=== PATIENT | female | born 1955 | race Caucasian/White ===

== ENCOUNTER 2016-06-24 10:11 | Day surgery (SDC) | payer OTHER ==
--- NOTE | ~2016-06-24 | EGD ---
EGD REPORT [facility] [address] [address] NAME: YSABEL CHING : [birth year] STATUS : REG [facility]#: [id number] AGE: 60 ADM/REG DATE : 06/24/16 MR#: [id number] REPORT SERV DATE: 06/24/16 DICTATED BY: MONA CALI DATE: 06/24/16 REPORT STATUS : Draft TRANSCRIBED BY: [facility] DATE: 06/24/16 Endoscopy Center Patient Name: Ysabel Ching Date of : 1955 Attending MD: MONA CALI MD Procedure Date No Time: 06/24/2016 Procedure: Upper GI endoscopy Indications: Nausea with vomiting, Refractory retching and dry heaves after sleeve gastrectomy Referring MD: NABIL PATEL Medicines: Propofol per Anesthesia Complications: No immediate complications. Estimated blood loss: None. Procedure: Pre-Anesthesia Assessment: - After reviewing the risks and benefits, the patient was deemed in satisfactory condition to undergo the procedure. - Prior to the procedure, a History and Physical was performed, and patient medications and allergies were reviewed. The patient's tolerance of previous anesthesia was also reviewed. The risks and benefits of the procedure and the sedation options and risks were discussed with the patient. All questions were answered, and informed consent was obtained. Prior Anticoagulants: The patient has taken no previous anticoagulant or antiplatelet agents. ASA Grade Assessment: III - A patient with severe systemic disease. After reviewing the risks and benefits, the patient was deemed in satisfactory condition to undergo the procedure. After obtaining informed consent, the endoscope was passed under direct vision. Throughout the procedure, the patient's blood pressure, pulse, and oxygen saturations were monitored continuously. The GIF [id number] was introduced through the mouth, and advanced to the third part of duodenum. The upper GI endoscopy was accomplished without difficulty. The patient tolerated the procedure well. Findings: The examined esophagus was normal. There was evidence of a prior sleeve gastrectomy. There was a mild waist noted in the sleeve about 10 cm distal to the GE junction but it was widely patent without significant narrowing. A TTS dilator balloon was passed through the scope. Dilation with an 18-19-20 mm balloon (to a maximum balloon size of 20 mm) dilator was performed with an inflation to 18 mm for a minute and then 20 mm for a minute. Estimated blood loss: EGD REPORT [address] [address] NAME: YSABEL CHING : [birth year] STATUS : REG [facility] PAT#: [id number] AGE: 60 ADM/REG DATE : 06/24/16 MR#: [id number] REPORT SERV DATE: 06/24/16 DICTATED BY: MONA CALI DATE: 06/24/16 REPORT STATUS : Draft TRANSCRIBED BY: [employer] DATE: 06/24/16 none. The area was widely patent after dilation without any evidence of mucosal injury. Diffuse moderate inflammation characterized by erythema and granularity was found in the gastric antrum. The examined duodenum was normal. Impression: - Normal esophagus. - Minimal stenosis of sleeve gastrectomy S/P dilation to 20 mm (60 Fr). - Normal examined duodenum. - GERD. - Intractable dry heaves. Recommendation: - Discharge patient to home (ambulatory). - Resume clear liquid diet. - Begin Nexium suspension at 40 mg daily before meal as previously suggested. - Patient has a contact number available for emergencies. The signs and symptoms of potential delayed complications were discussed with the patient. Return to normal activities tomorrow. Written discharge instructions were provided to the patient. Procedure Code(s): --- Professional --- 81768, Esophagogastroduodenoscopy, flexible, transoral; with dilation of gastric/duodenal stricture(s) (eg, balloon, bougie) Diagnosis Code(s): --- Professional --- R11.2, Nausea with vomiting, unspecified CPT copyright 2013 [employer]. All rights reserved. The codes documented in this report are preliminary and upon executive staff assistant review may be revised to meet current compliance requirements. MONA CALI MD 06/24/2016 11:32 AM This report has been signed electronically. Number of Addenda: 0 Note Initiated On: 06/24/2016 10:54 AM Scope Withdrawal Time 0 hours 0 minutes 0 seconds [address] [place] [address]
[~2016-06-24 10:11] MED LIST: ACET500CAP PO; ASAB PO; ASMANEX200 INH; CRANBERRY300 MG PO; EZFE 200200 MG PO; FLURBIPROFEN100 MG PO; GLUCCHONDR PO; MEVACOR10 MG PO; MULTIPLE VIT PO; NEUR300 PO; PRILOSEC40 MG PO; PROAIR HFA INH; SUCR PO; SYN112 PO; VITAMIN D1000 UNI1 PO; ZESTORETIC PO
[2016-07-08] MEDS ORDERED: SYN125 PO (19:32)
[2016-07-08] MEDS ORDERED: PROTONIXIV IV (19:34)
[2016-07-08] MEDS ORDERED: HYDROMORPHONE 1 MG/ML PO (19:36)
[2016-07-08] MEDS ORDERED: HYCET 7.5 MG-3473 ML PO (19:36)
== END 2016-06-24 23:59 | disposition home or self-care (01) ==
LOC: DMU 10:11
PROVIDERS: Internal Medicine Gastroenterology
PROC: 0D748ZZ Dilation of Esophagogastric Junction, Via Natural or Artificial Opening Endoscopic (ICD-10-PCS; principal; 2016-06-24 11:00)
DX: K21.9 Gastro-esophageal reflux disease without esophagitis (principal); R11.2 Nausea with vomiting, unspecified; K91.89 Other postprocedural complications and disorders of digestive system
CPT/HCPCS: C1726

== ENCOUNTER 2016-06-28 12:02 | Inpatient (IN) | payer OTHER ==
--- NOTE | ~2016-06-28 | HP ---
History And Physical [facility] [id number] [place]. [address] NAME: BEN CHING : [birth year] STATUS : ADM IN PAT#: [id number] AGE: 60 ADM/REG DATE : 06/28/16 MR#: [id number] REPORT SERV DATE: 06/28/16 DICTATED BY: NABIL BUNCH DATE: 06/28/16 REPORT STATUS : Draft TRANSCRIBED BY: SUHAS DATE: 06/28/16 DATE OF ADMISSION: 06/28/2016 DICTATED BY: Armida Staples APRN, ALTON, JANE. CHIEF COMPLAINT: Intractable dry heaves with vomiting status post laparoscopic sleeve gastrectomy. HISTORY OF PRESENT ILLNESS: The patient is a pleasant 60-year-old white female, who is status post sleeve gastrectomy on 04/25/2016. She had a starting weight of 277.4 pounds with a BMI of 41.6. The patient did well initially and was able to tolerate clear and full liquids, however upon advancing to a more pureed and soft food diet, the patient started developing vomiting and dry heaving. This was managed conservatively at first through medications which she was able to receive some improvement; however, we decided to move forward with dilation of this sleeve gastrectomy. The patient was referred to Dr. Ander Trinidad and underwent a guided wire dilation on 06/13/2016. She initially showed some improvement through a 72-hour period and then her symptoms returned although at that point, they were not as severe. The patient was then referred back to Dr. Trinidad and was able to see his nurse practitioner, Lynda Roland on 06/24/2016, and underwent a second dilation at this time using a balloon dilator. The patient was followed up in the office 2 days later, did show improvement without any dry heaving or vomiting again for about a 72-hour period. The patient who contacted the office this morning, states that she once again is starting to have dry heaves and decreased intake. This is concerning currently, not only given that her symptoms have returned, but her last labs did show a decrease in renal function. She was referred to Nephrology but has not yet been contacted and so, the patient is admitted today for evaluation and further treatment. PAST MEDICAL HISTORY: The patient has a positive past medical history significant for asthma, dyslipidemia, hypertension, hypothyroidism, fibromyalgia, osteoporosis, reflux, and sleep apnea with a CPAP machine. PAST SURGICAL HISTORY: The patient has a previous surgical history including her bariatric surgery; 04/25/2016, laparoscopic sleeve gastrectomy with a starting weight of 277.4 pounds and a BMI of 41.6. In 2013, she had vein closure. In 2006, she had a right rotator cuff repair with hardware. In 1998, she had a partial thyroidectomy. In 1993, she had a left breast biopsy that was found to be benign; and in 1989, she had a section with a Pfannenstiel incision. FAMILY HISTORY: Family history is significant for father with kidney disease who at the age of 25. Mother with a history of breast cancer. A sister with malignant lymphoma and a sister with a breast cancer as well. SOCIAL HISTORY: The patient denies history of smoking but reports occasional social use, typically drinking wine 3-to-4 times a year. She denies alcohol use since surgery. She is employed and works as a preschool and lbd teacher. She is , with children. History And Physical [address] [address] NAME: BEN CHING : [birth year] STATUS : ADM IN [facility]#: [id number] AGE: 60 ADM/REG DATE : 06/28/16 MR#: [id number] REPORT SERV DATE: 06/28/16 DICTATED BY: NABIL BUNCH DATE: 06/28/16 REPORT STATUS : Draft TRANSCRIBED BY: SUHAS DATE: 06/28/16 MEDICATIONS: Although the patient is on numerous maintenance medications, she has currently been holding many of those medications at this time. She does continue to take her levothyroxine and her blood pressure medicines including lisinopril 20 mg with hydrochlorothiazide 12.5 mg as well as lovastatin 10 mg. She additionally has been taking Bentyl, Zofran 4 mg, and Ativan 0.5 mg every 8 hours as needed for her current symptoms. ALLERGIES: THE PATIENT DENIES DRUG ALLERGIES. REVIEW OF SYSTEMS: The patient denies chest pain or shortness of breath when walking. No palpitations or leg pain with exercise. She reports history of sleep apnea with CPAP reviews, but denies cough, wheezing, shortness of breath, coughing up blood, or ongoing lung disease. She does have a positive history for asthma. She reports intermittent GERD, typically treated by omeprazole, this has decreased since surgery, and she has not been currently taking her PPI. She denies diarrhea. She reports bone and joint pain but denies muscle aches, muscle weakness, or back pain. She reports history of anemia with successful treatment in the past. No fever or significant weight gain. She has reported weight loss with surgery. No history of cancers or problems with anesthesia in the past. No eye complaints, eye irritation. She does wear glasses. She reports no difficulty hearing or ear pain. No sore throat or abnormalities, teeth problems, or hoarseness. No painful urination and she is currently voiding 3-to-4 times a day. No history of kidney disease in the past. She denies problems with the skin. No abnormal moles, jaundice, rashes, nonhealing wounds or sores. No loss of consciousness, weakness, numbness, seizures, dizziness, or headaches and no history of depression, sleep disturbances, anxiety, or alcohol abuse. PHYSICAL EXAMINATION: GENERAL: The patient is a 60-year-old white female. CONSTITUTIONAL/GENERAL APPEARANCE: Well-nourished morbidly obese. Level of distress, no cute distress. Ambulation, is ambulating normally. HEAD: Pupils are equal, round, and reactive to light. EAR, NOSE, AND THROAT: ENT is within normal limits. NECK: Supple. Trachea midline. No masses. CARDIOVASCULAR: Heart auscultation, regular rate and rhythm. LUNGS: Respiratory effort, no dyspnea. Auscultation, no wheezing, rales, crackles, or rhonchi. Breath sounds are normal and clear to auscultation. ABDOMEN: Inspection and palpation, no tenderness, guarding, masses, or rebound tenderness. ABDOMEN: Soft and nondistended. Bowel sounds are normal. Lap sites have healed. PSYCHIATRIC: Insight, good judgment and insight. MENTAL STATUS: Normal mood. Flat affect but she is active and alert. She is oriented to time, place, and person. LABS: The patient did undergo labs through Dr. Trinidad's office on 06/21/2016, we are awaiting current hospital labs. Her labs did show that she had a GFR of 19 with a creatinine of 2.61, this is what led to Nephrology consult, and we will await a CBC, renal panel, and magnesium for further evaluation while inpatient. ASSESSMENT AND PLAN: This is a 60-year-old white female who has recently undergone laparoscopic sleeve gastrectomy, developed dysphagia with intractable dry heaves and productive vomiting in week 3-to-4 postop. She has been treated through medical management History And Physical [address] [address] NAME: BEN CHING : [birth year] STATUS : ADM IN PAT#: [id number] AGE: 60 ADM/REG DATE : 06/28/16 MR#: [id number] REPORT SERV DATE: 06/28/16 DICTATED BY: NABIL BUNCH DATE: 06/28/16 REPORT STATUS : Draft TRANSCRIBED BY: SUHAS DATE: 06/28/16 as well as dilation with both guidewire and repeated balloon dilation with initial improvement. Given this improvement, there is the belief that there is a mechanical component to her vomiting although there is likely a psychological component as well. Given her repeat of symptoms currently, the patient is being admitted for management and evaluation of both her current renal status by Nephrology and we have also consulted GI Dr. Ander Trinidad to proceed with placement of a stent in order to address the mechanical component of this patient's current symptoms. The patient is going to undergo treatment with medications including IV Zofran, Protonix, Ativan, and pain medications as needed. Stent has been ordered. Placement is expected on Friday afternoon and the patient is receiving IV fluid bolus of normal saline at 500 mL and then that will be converted over to D5 half-normal saline at a rate of 125 mL. RICHARD Nabil Grant M.D. / [id number] CC: Tyson Benitez
--- NOTE | ~2016-06-28 | DS ---
Discharge Summary [facility] [address] [place]. [address] NAME: BEN CHING : 59 STATUS : DIS IN PAT#: [id number] AGE: 60 ADM/REG DATE : 06/28/16 MR#: [id number] REPORT SERV DATE: 07/19/16 DICTATED BY: NABIL BUNCH DATE: 07/18/16 REPORT STATUS : Draft TRANSCRIBED BY: SUHAS DATE: 07/18/16 ADMISSION DATE: 06/28/2016 DISCHARGE DATE: 07/04/2016 This patient has been struggling with dry heaves and dysphagia after sleeve gastrectomy. She responded well to a balloon dilatation, but then the symptoms recurred. So at this point, she has been admitted to manage her dry heaves with IV fluids, IV medications, and then we consulted GI, Dr. Trinidad to place an endoscopic stent to alleviate some of the distress. She does not have a stricture. She is just very sensitive to a narrow sleeve. So we are going to try to stretch it that way, and because she responded well with balloon dilatation, then we are going to try to do a more permanent distention with stent. So we ordered the stent. The patient was admitted on a Friday with contemporizing in order the stent to be placed on Friday. Stent was placed on 07/01/2016, and then the next day, she was doing well, but she could not tolerate p.o. liquid, so we decided to put a PICC line TPN and then do a home health management with TPN at home. The plan is to leave the stent for 1 or 2 weeks and then remove the stent and then see how she does. Condition on discharge, stable and improved. She was sent with home health with TPN, IV Protonix, and follow up in our office in 1 week. So the final diagnosis is dysphagia and dry heaves post a laparoscopic sleeve gastrectomy. RICHARD Nabil Grant M.D. / [id number]
--- NOTE | ~2016-06-28 | CN ---
Consultation Report [facility] [address] [place]. [address] NAME: BEN CHING : 59 STATUS : DIS IN PAT#: [id number] AGE: 60 ADM/REG DATE : 06/28/16 MR#: [id number] REPORT SERV DATE: 07/11/16 DICTATED BY: ANA MAYBERRY DATE: 06/28/16 REPORT STATUS : Draft TRANSCRIBED BY: MODL DATE: 06/28/16 CONSULTATION DATE OF CONSULTATION: 06/28/2016 REASON FOR CONSULTATION: Acute kidney injury. ASSESSMENT: Acute kidney injury. The patient's baseline creatinine was 0.81 on 03/2013, 1.05 on 04/17/2016, 2.61 on 06/21/2016 this year, and now is 1.73 on admission. I suspect she has volume depletion in the setting of recurrent dry heaving post gastric sleeve procedure done in April of this year with concomitant use of her lisinopril/HCTZ that likely aggravated a decline in her GFR. It should be totally reversible and I suspect it is mainly the above factors. PLAN: 1. Continue the IV fluids that you started. 2. Check her urinalysis. 3. Check her renal ultrasound for completion and the diet is to be followed as per the GI MDs. HISTORY: History is obtained from the patient and the . She is a very pleasant 60- year-old female, who underwent a gastric sleeve procedure that was done on 04/25/2016. She had a sleeve gastrectomy and posterior crural repair of moderate sized hiatal hernia that was done by Dr. Albarran on 04/25/2016. Unfortunately, she has subsequently developed dry heaving that has been persistent several weeks after. Dr. Trinidad has performed two dilatations with relief over a period of three days and then recurrence of symptoms. She is on lisinopril/HCTZ for hypertension which she has continued to take and now is admitted after continued heaving and significant dehydration and inability to take anything in orally. She has lost about 40 pounds in her sleeve procedure, but she has also developed acute kidney injury related to profound dehydration and the medication use, assume. She denies any difficulty voiding. No use of antiinflammatories. No hematuria. No increasing lower limb edema. Denies prior history of acute kidney injury, and no family history of kidney stones or passage of kidney stones. PAST MEDICAL HISTORY: Includes: 1. Breast reduction and partial mastectomies back in 2013 because of strong family history of breast cancer. 2. Hypertension. 3. Gastric sleeve procedure. 4. History of osteoarthritis in both hip joints. SOCIAL HISTORY: Does not smoke cigarettes. No alcohol or medication street drug usage. HOME MEDICATIONS: Described and include lisinopril/HCTZ. Consultation Report [address] [place]. [address] NAME: BEN CHING : 59 STATUS : DIS IN PAT#: [id number] AGE: 60 ADM/REG DATE : 06/28/16 MR#: [id number] REPORT SERV DATE: 07/11/16 DICTATED BY: ANA MAYBERRY DATE: 06/28/16 REPORT STATUS : Draft TRANSCRIBED BY: SUHAS DATE: 06/28/16 REVIEW OF SYSTEMS: As per the HPI. FAMILY HISTORY: Parents, no history of chronic kidney disease or history of renal failure. Her father two months before she was born, apparently had some form of kidney disease, and her mother when the patient was 9 from breast cancer. PHYSICAL EXAMINATION: GENERAL: She is lying prone. VITAL SIGNS: Show her blood pressure is 111/65, heart rate is in the 90s. She is afebrile. HEENT: Her pupils are reactive to light. She is not pale or jaundiced. Her oral mucosa is dry. There is no pharyngitis. NECK: Supple. No thyromegaly. Trachea central. Air entry is equal bilaterally. CHEST: Clear to auscultation. She has had breast surgery as indicated. ABDOMEN: Mildly distended. There is no hepatosplenomegaly, tenderness, guarding, or rebound. She has no peripheral edema. Slight loss of skin turgor is noted. Peripheral pulses are present, dorsalis pedis, posterior tibial. She is obese. NEURO: She is awake, alert, oriented to time, place, and person. Affect is depressed. Cranial nerves are intact. No gross neurological deficits described. LAB WORK: Sodium 139, potassium 4.3, chloride 103, CO2 of 24, BUN 32, creatinine 1.73, glucose 119, alkaline phosphatase 131, ALT is 69. TSH 0.35. Hemoglobin 9.9, hematocrit 31.3, white count 9.9, platelet count 266,000. Urinalysis is pending. MG/MODL Ana Mayberry M.D. / [id number] CC: Tyson Benitez Stephen S
--- NOTE | ~2016-06-28 | CN ---
Consultation Report [facility] [address] [place]. [address] NAME: BEN HCING : 59 STATUS : ADM IN PAT#: [id number] AGE: 60 ADM/REG DATE : 06/28/16 MR#: [id number] REPORT SERV DATE: 06/30/16 DICTATED BY: RICHARD ROSALES DATE: 06/30/16 REPORT STATUS : Draft TRANSCRIBED BY: MODL DATE: 06/30/16 CONSULTATION DATE OF CONSULTATION: HISTORY OF PRESENT ILLNESS: This very pleasant 60-year-old lady had a post sleeve gastrectomy on 04/25/2016. After that, she began having problems with tolerating liquids. She could tolerate clear liquids, but advanced to a more pureed diet, had problems with vomiting and dry heaving. She did not really had vomit up fluid, but more dry heaving and gagging. She underwent a wire-guided dilation of 36-Hungarian on 06/13/[address] Trinidad. She improved for 48 hours and symptoms recurred. She underwent a second dilatation on 06/24/2016 with a balloon dilator. She improved again for 24 to 72 hours and on the day of admission, had dry heaves and poor intake. She really denies any abdominal pain. PAST MEDICAL HISTORY: Asthma, hyperlipidemia, hypothyroid, osteoporosis. MEDICATIONS: Thyroid, lisinopril, lovastatin. PHYSICAL EXAMINATION: GENERAL: Does not look in acute distress. VITAL SIGNS: Normal. TRACHEA: Midline. CHEST: Clear. CARDIAC: Normal. ABDOMEN: Soft, nontender. LABORATORY DATA: Her hemoglobin is 9.9. BUN of 1.73, now down to 1.37 with hydration. IMPRESSION: Decreased intake and dry heaving after sleeve gastrectomy. Transient responsive dilatation. Question whether she has stenosis in the gastric sleeve. Apparently, the plan is for Dr. Trinidad to perform stent placement. PLAN: 1. Keep up IV hydration. 2. We will add Compazine for nausea to the Zofran. 3. Dr. Trinidad to return on Friday for procedure. MG/MODL Richard Rosales M.D. Consultation Report [facility] [address] [place]. [address] NAME: BEN CHING : 59 STATUS : ADM IN PAT#: [id number] AGE: 60 ADM/REG DATE : 06/28/16 MR#: [id number] REPORT SERV DATE: 06/30/16 DICTATED BY: RICHARD ROSALES DATE: 06/30/16 REPORT STATUS : Draft TRANSCRIBED BY: MODL DATE: 06/30/16 / [id number] CC: Tyson Benitez
--- NOTE | ~2016-06-28 | OP ---
Record Of Operation [facility] [address] [place]. [address] NAME: BEN CHING : 59 STATUS : ADM IN PAT#: [id number] AGE: 60 ADM/REG DATE : 06/28/16 MR#: [id number] REPORT SERV DATE: 07/01/16 DICTATED BY: ANDER TRINIDAD DATE: 07/01/16 REPORT STATUS : Draft TRANSCRIBED BY: SUHAS DATE: 07/01/16 DATE OF PROCEDURE: PROCEDURE: EGD with fluoroscopic placement of [employer] fully covered stent through distal esophagus and sleeve. INDICATION: Mild stenosis of gastric sleeve with intractable nausea, vomiting, gagging, and dry heaving. MEDICATIONS: Propofol. PIZZA BAKER: Ander Trinidad M.D. COMPLICATIONS: None. HISTORY: This woman is 60 years old and now several weeks, status post placement of a gastric sleeve. She has been unable to feed and has lost a great deal of weight. She has had Savary dilation and a week ago, balloon dilation to 20 mm of an area of mild stenosis in the gastric sleeve. Appeared to be fully patent after the dilation. After each dilation, she improved for several days, but then began to gag and retch again. After discussion with the patient, her , Dr. Albarran, Bariatric Surgery recommended placement of a fully covered stent for a couple of weeks to allow the sleeve to fully open and accommodate. I agreed to do this and discuss this with the family including the risks of bleeding, medication reaction, perforation, and they elected to proceed. FINDINGS: Endoscopic examination was performed of the esophagus, gastric sleeve, and duodenum. There were no major differences from the prior examination. There was an area of mild puckering just distal to the GE junction in the gastric sleeve, but it really did appear to be fully patent. This area of "mild stenosis" was measured 44 cm from the incisors. The GE junction was measured at 40 cm from the incisors and the pylorus was measured 59 cm from the incisors. Radiopaque markers were placed on the patient at 40 cm to identify this area. I then placed an Endoclip at 52 cm from the incisors. This was the goal for the distal placement of the stent as we wanted to leave about 3 cm of the stent in the distal esophagus. This also gave us margin of 7 cm proximal to the pylorus. At this point, a guidewire was placed through the endoscope and the scope was removed over the guidewire. Using the radiopaque Endoclip and the external marker, we then put in this stent apparatus over the wire without too much difficulty. Unfortunately, she did gag a lot during the procedure which made it difficult, but we then deployed the stent in the desired position with the proximal margin 37 cm from the incisors or about 3 cm proximal to GE junction. The distal margin of the stent was about 52 cm from the incisors or 7 cm proximal to the pylorus. The stent was then traversed with the endoscope and it appeared to be in good position and fully deployed. There was no bleeding. The scope was removed and the patient sent to recovery. IMPRESSION: Mild gastric sleeve stenosis, status post placement of a stent. Record Of Operation [address] [place]. [address] NAME: BEN CHING : 59 STATUS : ADM IN [facility]#: [id number] AGE: 60 ADM/REG DATE : 06/28/16 MR#: [id number] REPORT SERV DATE: 07/01/16 DICTATED BY: ANDER TRINIDAD DATE: 07/01/16 REPORT STATUS : Draft TRANSCRIBED BY: SUHAS DATE: 07/01/16 RECOMMENDATIONS: We will start clear liquids and then defer to Bariatric Surgery. MARINA/SUHAS Ander Trinidad M.D. / [id number] CC: Tyson Benitez STEPHEN S
[2016-06-28 13:56] LABS: BASOPHILS 0.2 %; BASOPHILS ABSOLUTE 0.02 10/3/uL (0.0-0.16); EOSINOPHILS 0.3 %; EOSINOPHILS ABSOLUTE 0.03 10/3/uL (0.0-0.53); HEMATOCRIT 31.3 % (36.0-48.0); HEMOGLOBIN 9.9 g/dL (12.0-16.0); IMMATURE GRANULOCYTES 0.1 %; IMMATURE GRANULOCYTES ABSOLUTE 0.01 10/3/uL (0.0-0.11); LYMPHOCYTES 14.3 %; LYMPHOCYTES ABSOLUTE 1.41 10/3/uL (0.67-4.30); MEAN CORPUS HGB CONC 31.6 g/dL (32.0-36.0); MEAN CORPUSCULAR HEMOGLOB 28.6 pg (26.0-34.0); MEAN CORPUSCULAR VOLUME 90.5 fL (80-100); MEAN PLATELET VOLUME 10.4 fL (9.2-13.0); MONOCYTES 4.5 %; MONOCYTES ABSOLUTE 0.44 10/3/uL (0.21-1.20); NEUTROPHILS 80.6 %; NEUTROPHILS ABSOLUTE 7.96 10/3/uL (2.02-8.40); PLATELET COUNT 266 10/3/uL (150-400); RBC DISTRIBUTION WIDTH 14.6 % (12.0-16.0); RED CELL COUNT 3.46 10/6/uL (4.0-5.6); WHITE BLOOD CELLS 9.9 10/3/uL (4.5-10.5)
[2016-06-28 14:00] LABS: ALBUMIN 3.5 G/DL (3.5-5.0); CALCIUM, SERUM 9.3 MG/DL (8.5-10.4); CHLORIDE, SERUM 103 MMOL/L (96-112); CO2 (CARBON DIOXIDE) 24 MMOL/L (24-34); PHOSPHORUS, SERUM 2.7 MG/DL (2.5-4.5); POTASSIUM, SERUM 4.3 MMOL/L (3.5-5.3); SODIUM, SERUM 139 MMOL/L (135-148)
[2016-06-28 14:01] LABS: BUN (BLOOD UREA NITROGEN) 32 MG/DL (6-23); CREATININE 1.73 MG/DL (0.55-1.02); GFR AFRICAN AMERICAN 37 ML/MIN (>=60); GFR NON AFRICAN AMERICAN 32 ML/MIN (>=60); GLUCOSE, SERUM 119 MG/DL (60-99); MANUAL DIFF NO %
[2016-06-28] MEDS ORDERED: LEVOTHYROXIN125 MCG PO (19:38)
[2016-06-28] MEDS ORDERED: ATV.5 PO (19:47)
[2016-06-28 20:36] LABS: ASCORBIC ACID (UR NOT ORDER) 20 (NEG); BILIRUBIN, URINE NEGATIVE (NEG); KETONE, URINE NEGATIVE (NEG); LEUKOCYTE ESTERASE(NOT OR NEG (NEG); WBC (NOT ORDERED) (RFLEX) 1 (0-5)
[2016-06-29 04:33] LABS: BASOPHILS 0.1 %; BASOPHILS ABSOLUTE 0.01 10/3/uL (0.0-0.16); EOSINOPHILS 1.1 %; EOSINOPHILS ABSOLUTE 0.08 10/3/uL (0.0-0.53); HEMATOCRIT 29.6 % (36.0-48.0); HEMOGLOBIN 9.3 g/dL (12.0-16.0); IMMATURE GRANULOCYTES 0.1 %; IMMATURE GRANULOCYTES ABSOLUTE 0.01 10/3/uL (0.0-0.11); INTERNATIONAL NORMAL RATI 1.1 UNITS (-); LYMPHOCYTES 22.5 %; MANUAL DIFF NO %; MEAN CORPUS HGB CONC 31.4 g/dL (32.0-36.0); MEAN CORPUSCULAR HEMOGLOB 28.7 pg (26.0-34.0); MEAN CORPUSCULAR VOLUME 91.4 fL (80-100); MEAN PLATELET VOLUME 10.6 fL (9.2-13.0); MONOCYTES 5.8 %; MONOCYTES ABSOLUTE 0.41 10/3/uL (0.21-1.20); NEUTROPHILS 70.4 %; NEUTROPHILS ABSOLUTE 4.99 10/3/uL (2.02-8.40); PLATELET COUNT 240 10/3/uL (150-400); PROTIME (NOT ORD) 14.5 SEC (12.0-14.5); RBC DISTRIBUTION WIDTH 14.5 % (12.0-16.0); RED CELL COUNT 3.24 10/6/uL (4.0-5.6); WHITE BLOOD CELLS 7.1 10/3/uL (4.5-10.5)
[2016-06-29 04:47] LABS: A/G RATIO 0.7 (0.7-1.9); ALBUMIN 2.9 G/DL (3.5-5.0); CHLORIDE, SERUM 103 MMOL/L (96-112); CO2 (CARBON DIOXIDE) 26 MMOL/L (24-34); CREATININE 1.57 MG/DL (0.55-1.02); GFR AFRICAN AMERICAN 42 ML/MIN (>=60); GFR NON AFRICAN AMERICAN 36 ML/MIN (>=60); GLOBULIN 3.9 G/DL (2.5-4.1); GLUCOSE, SERUM 122 MG/DL (60-99); PHOSPHORUS, SERUM 2.9 MG/DL (2.5-4.5); SGPT(ALT) 44 U/L (5-65); SODIUM, SERUM 136 MMOL/L (135-148); TOTAL BILIRUBIN 0.5 MG/DL (0-1.2); TOTAL PROTEIN 6.8 G/DL (6.0-8.5)
[2016-06-29 04:51] LABS: ALKALINE PHOSPHATASE 90 U/L (45-117); BUN (BLOOD UREA NITROGEN) 22 MG/DL (6-23); DIRECT BILIRUBIN < 0.1 MG/DL (0.0-0.4); INDIRECT BILIRUBIN(NOT ORDER) 0.4 MG/DL (0.1-0.9); POTASSIUM, SERUM 4.7 MMOL/L (3.5-5.3); SGOT(AST) 28 U/L (5-40)
[2016-06-30 04:09] LABS: BASOPHILS 0.1 %; BASOPHILS ABSOLUTE 0.01 10/3/uL (0.0-0.16); EOSINOPHILS 1.4 %; HEMATOCRIT 28.7 % (36.0-48.0); HEMOGLOBIN 9.1 g/dL (12.0-16.0); IMMATURE GRANULOCYTES 0.1 %; IMMATURE GRANULOCYTES ABSOLUTE 0.01 10/3/uL (0.0-0.11); LYMPHOCYTES 22.6 %; LYMPHOCYTES ABSOLUTE 1.61 10/3/uL (0.67-4.30); MANUAL DIFF NO %; MEAN CORPUS HGB CONC 31.7 g/dL (32.0-36.0); MEAN CORPUSCULAR VOLUME 91.4 fL (80-100); MEAN PLATELET VOLUME 10.2 fL (9.2-13.0); MONOCYTES 6.5 %; MONOCYTES ABSOLUTE 0.46 10/3/uL (0.21-1.20); NEUTROPHILS 69.3 %; NEUTROPHILS ABSOLUTE 4.92 10/3/uL (2.02-8.40); PLATELET COUNT 214 10/3/uL (150-400); RBC DISTRIBUTION WIDTH 14.3 % (12.0-16.0); RED CELL COUNT 3.14 10/6/uL (4.0-5.6); WHITE BLOOD CELLS 7.1 10/3/uL (4.5-10.5)
[2016-06-30 04:29] LABS: ALBUMIN 3.1 G/DL (3.5-5.0); BUN (BLOOD UREA NITROGEN) 9 MG/DL (6-23); CHLORIDE, SERUM 104 MMOL/L (96-112); CO2 (CARBON DIOXIDE) 27 MMOL/L (24-34); CREATININE 1.37 MG/DL (0.55-1.02); GFR AFRICAN AMERICAN 49 ML/MIN (>=60); GFR NON AFRICAN AMERICAN 42 ML/MIN (>=60); GLUCOSE, SERUM 116 MG/DL (60-99); POTASSIUM, SERUM 4.2 MMOL/L (3.5-5.3); SODIUM, SERUM 137 MMOL/L (135-148)
[2016-07-01 04:56] LABS: BASOPHILS 0.3 %; BASOPHILS ABSOLUTE 0.02 10/3/uL (0.0-0.16); EOSINOPHILS 1.5 %; EOSINOPHILS ABSOLUTE 0.11 10/3/uL (0.0-0.53); HEMATOCRIT 27.7 % (36.0-48.0); HEMOGLOBIN 8.8 g/dL (12.0-16.0); IMMATURE GRANULOCYTES 0.4 %; IMMATURE GRANULOCYTES ABSOLUTE 0.03 10/3/uL (0.0-0.11); LYMPHOCYTES 20.4 %; MANUAL DIFF NO %; MEAN CORPUS HGB CONC 31.8 g/dL (32.0-36.0); MEAN CORPUSCULAR HEMOGLOB 28.3 pg (26.0-34.0); MEAN CORPUSCULAR VOLUME 89.1 fL (80-100); MEAN PLATELET VOLUME 10.5 fL (9.2-13.0); MONOCYTES ABSOLUTE 0.37 10/3/uL (0.21-1.20); NEUTROPHILS 72.4 %; NEUTROPHILS ABSOLUTE 5.32 10/3/uL (2.02-8.40); PLATELET COUNT 209 10/3/uL (150-400); RBC DISTRIBUTION WIDTH 14.4 % (12.0-16.0); RED CELL COUNT 3.11 10/6/uL (4.0-5.6); WHITE BLOOD CELLS 7.4 10/3/uL (4.5-10.5)
[2016-07-01 05:09] LABS: ALBUMIN 2.8 G/DL (3.5-5.0); BUN (BLOOD UREA NITROGEN) 6 MG/DL (6-23); CHLORIDE, SERUM 105 MMOL/L (96-112); CO2 (CARBON DIOXIDE) 25 MMOL/L (24-34); CREATININE 1.07 MG/DL (0.55-1.02); GFR AFRICAN AMERICAN 66 ML/MIN (>=60); GFR NON AFRICAN AMERICAN 57 ML/MIN (>=60); GLUCOSE, SERUM 107 MG/DL (60-99); POTASSIUM, SERUM 3.9 MMOL/L (3.5-5.3); SODIUM, SERUM 137 MMOL/L (135-148)
[2016-07-02 05:27] LABS: ALBUMIN 2.9 G/DL (3.5-5.0); BUN (BLOOD UREA NITROGEN) 7 MG/DL (6-23); CALCIUM, SERUM 8.9 MG/DL (8.5-10.4); CHLORIDE, SERUM 105 MMOL/L (96-112); CO2 (CARBON DIOXIDE) 25 MMOL/L (24-34); CREATININE 1.03 MG/DL (0.55-1.02); GFR AFRICAN AMERICAN 69 ML/MIN (>=60); GFR NON AFRICAN AMERICAN 60 ML/MIN (>=60); GLUCOSE, SERUM 126 MG/DL (60-99); POTASSIUM, SERUM 4.2 MMOL/L (3.5-5.3); SODIUM, SERUM 137 MMOL/L (135-148)
[2016-07-02 05:28] LABS: PHOSPHORUS, SERUM 4.1 MG/DL (2.5-4.5)
[2016-07-03 05:26] LABS: CALCIUM, SERUM 8.9 MG/DL (8.5-10.4); CHLORIDE, SERUM 105 MMOL/L (96-112); CO2 (CARBON DIOXIDE) 23 MMOL/L (24-34); GFR AFRICAN AMERICAN 72 ML/MIN (>=60); GFR NON AFRICAN AMERICAN 62 ML/MIN (>=60); GLUCOSE, SERUM 118 MG/DL (60-99); POTASSIUM, SERUM 3.9 MMOL/L (3.5-5.3); SODIUM, SERUM 137 MMOL/L (135-148); TRIGLYCERIDE 193 MG/DL (< 150)
[2016-07-03 05:31] LABS: BUN (BLOOD UREA NITROGEN) 11 MG/DL (6-23); PHOSPHORUS, SERUM 2.4 MG/DL (2.5-4.5)
[2016-07-04 05:48] LABS: CALCIUM, SERUM 8.8 MG/DL (8.5-10.4); CHLORIDE, SERUM 104 MMOL/L (96-112); CO2 (CARBON DIOXIDE) 26 MMOL/L (24-34); GFR AFRICAN AMERICAN 94 ML/MIN (>=60); GFR NON AFRICAN AMERICAN 81 ML/MIN (>=60); GLUCOSE, SERUM 114 MG/DL (60-99); PHOSPHORUS, SERUM 2.6 MG/DL (2.5-4.5); POTASSIUM, SERUM 3.3 MMOL/L (3.5-5.3); SODIUM, SERUM 139 MMOL/L (135-148)
[2016-07-04 05:49] LABS: BUN (BLOOD UREA NITROGEN) 25 MG/DL (6-23)
[2016-07-04] MEDS ORDERED: HYCET 7.5 MG-3473 ML PO (16:49)
[2016-07-08] MEDS ORDERED: SYN125 PO (19:32)
[2016-07-08] MEDS ORDERED: PROTONIXIV IV (19:34)
[2016-07-08] MEDS ORDERED: HYDROMORPHONE 1 MG/ML PO (19:36)
[2016-07-08] MEDS ORDERED: HYCET 7.5 MG-3473 ML PO (19:36)
== END 2016-07-04 19:13 | disposition home health service (06) | DRG 920 ==
LOC: 2SO 12:02
PROVIDERS: Internal Medicine Gastroenterology; Internal Medicine Nephrology; Nurse Practitioner; Registered Nurse; Surgery
PROC: 0D738DZ Dilation of Lower Esophagus with Intraluminal Device, Via Natural or Artificial Opening Endoscopic (ICD-10-PCS; principal; 2016-07-01 15:45)
PROC: 02HV33Z Insertion of Infusion Device into Superior Vena Cava, Percutaneous Approach (ICD-10-PCS; 2016-07-02)
PROC: 3E0436Z Introduction of Nutritional Substance into Central Vein, Percutaneous Approach (ICD-10-PCS; 2016-07-02)
DX: T85.598A Other mechanical complication of other gastrointestinal prosthetic devices, implants and grafts, initial encounter (principal); N17.9 Acute kidney failure, unspecified; R13.10 Dysphagia, unspecified; Z99.81 Dependence on supplemental oxygen; E86.0 Dehydration; Z98.84 Bariatric surgery status; J45.909 Unspecified asthma, uncomplicated; E78.5 Hyperlipidemia, unspecified; I10 Essential (primary) hypertension; E03.9 Hypothyroidism, unspecified; M79.7 Fibromyalgia; M81.0 Age-related osteoporosis without current pathological fracture; K21.9 Gastro-esophageal reflux disease without esophagitis; G47.30 Sleep apnea, unspecified; R11.10 Vomiting, unspecified; E86.9 Volume depletion, unspecified
CPT/HCPCS: 36569; 76000; 76775; 80048; 80053; 80069; 81001; 82140; 82248; 82330; 82962; 83690; 83735; 84100; 84478; 85025; 85610; 94640; A9270-GY; C1751; C1769; C1874; C9113; J0780; J1170; J2405

== ENCOUNTER 2016-07-08 20:35 | Inpatient (IN) | payer OTHER ==
--- NOTE | ~2016-07-08 | OP ---
Record Of Operation [facility] [address] [place]. [address] NAME: BEN CHING : 59 STATUS : ADM Cameron PAT#: [id number] AGE: 60 ADM/REG DATE : 07/08/16 MR#: [id number] REPORT SERV DATE: 07/11/16 DICTATED BY: ANDER TRINIDAD DATE: 07/10/16 REPORT STATUS : Draft TRANSCRIBED BY: MODNiru DATE: 07/10/16 DATE OF PROCEDURE: PROCEDURE: EGD with removal of a [employer] stent. INDICATION: Intractable chest and epigastric pain after stent placement for possible stenosis of the gastric sleeve. MEDICATIONS: Propofol. DIRECTOR DENTAL SERVICES: Ander Trinidad M.D. COMPLICATIONS: None. HISTORY: She has been a difficult case with intractable symptoms reported as nausea and vomiting after gastric sleeve as a bariatric procedure. With further questioning, however, her main issue seems to be dry heaves whether she takes anything orally or not. Initially, there was some question of stenosis in the gastric sleeve a few centimeters distal to the GE junction. Despite a couple of Savary dilations and a balloon dilation, however, she could not get any lasting relief. On all these occasions, she said she was better for a few days, but then started retching again. At Dr. Albarran's requested, a [employer] 29 mm x 15 cm stent was placed. This spanned from about 3 cm above the GE junction through this area of possible stenosis into the distal stomach and terminated about 7 cm proximal to the pylorus. A clip had been placed at the distal margin in order to visualize it endoscopically placement. Since placement of the stent 10 days ago, however, she has continued to retch and have dry heaves. She has also complained of intractable pain in her chest and stomach such that she has had to get continued narcotics. She has been on TPN, but has not been able to take anything orally. Dr. Albarran requested that the stent be removed. I reviewed this with her and her in detail including its potential risks of bleeding or perforation, and she elected to proceed. FINDINGS: Endoscopic examination was performed, and as the instrument was advanced into the distal esophagus, we immediately noted the proximal margin of the stent. The string was noted and this was grabbed with a rat tooth forceps. There was a small shelf of tissue that was overhanging part of the circumference of the proximal margin of the stent. With traction. We were able to gradually get the stent to move and when we tried to maneuver it where it would come pass the shelf of tissue. Once it started moving, it came out quite easily. The stent was then discarded. The endoscope was reintroduced and the esophagus and the gastric sleeve as well as proximal duodenal were examined. There was still an Endoclip present at the distal margin of the stent that had been used to max it. There was a very small amount of bleeding. The most significant lesion was ulceration in the distal esophagus at the proximal margin of the stent, and this probably occurred due to her continued retching with the stent in place. Record Of Operation [address] [place]. [address] NAME: BEN CHING : 59 STATUS : ADM Cameron PAT#: [id number] AGE: 60 ADM/REG DATE : 07/08/16 MR#: [id number] REPORT SERV DATE: 07/11/16 DICTATED BY: ANDER TRINIDAD DATE: 07/10/16 REPORT STATUS : Draft TRANSCRIBED BY: SUHAS DATE: 07/10/16 There did not appear to be any transmural injury, however. IMPRESSION: 1. Gastric sleeve with continued nausea and vomiting. 2. Ulceration at the proximal margin of the stent, which is now removed. RECOMMENDATIONS: 1. High-dose IV Protonix 40 mg q.12 hours. 2. N.p.o. for now. 3. Discontinue Lovenox. 4. We will go ahead with a Gastrografin upper GI tomorrow before starting any oral intake. 5. Continue TPN per Dr. Albarran. /MODL Ander Trinidad M.D. / [id number] CC: Tyson Benitez STEPHEN S
--- NOTE | ~2016-07-08 | HP ---
History And Physical [place] [address] [facility] [place]. [address] NAME: BEN CHING : 59 STATUS : ADM Cameron PAT#: [id number] AGE: 60 ADM/REG DATE : 07/08/16 MR#: [id number] REPORT SERV DATE: 07/09/16 DICTATED BY: NABIL BUNCH DATE: 07/09/16 REPORT STATUS : Draft TRANSCRIBED BY: SUHAS DATE: 07/09/16 DATE OF ADMISSION: 07/08/2016 Dictated by Armida Aquino APRN, THAD-Lex, JANE CHIEF COMPLAINT: Uncontrolled, intractable dry heaves with vomiting, status post laparoscopic sleeve gastrectomy, and UTI. HISTORY OF PRESENT ILLNESS: The patient is a pleasant 60-year-old white female, who is status post sleeve gastrectomy on 04/25/2016. She developed intractable dry heaves with vomiting as she advanced her diet. This was managed conservatively at first. The patient underwent two dilations with Dr. Ander Trinidad and then was admitted on 06/28/2016 for rehydration, pain control, and placement of a gastric stent. On 07/01/2016, Dr. Trinidad placed a [employer] fully covered stent through the distal esophagus and sleep due to mild stenosis of the gastric sleeve. The patient was then placed on TPN due to continued dry heaving and vomiting. The patient was discharged home, where she was managed with p.o. liquid pain medications and TPN through Home Health. This pain became uncontrolled with oral medications and the patient was sent to the hospital through the emergency department on 07/08/2016 with complaints of pain unrelieved with her oral medications. She was admitted and has been able to continue her TPN until the hospital was able to roll picker those orders. PAST MEDICAL HISTORY: Past medical history was previously dictated, please see admission on 06/28/2016. PAST SURGICAL HISTORY: No changes from admission, 06/28/2016 other than the [employer] fully covered stent placement on 07/01/2016. FAMILY HISTORY: No change from previous H and P. MEDICATION: The patient is currently undergoing TPN treatment at 75 mL/h, dose through pharmacy; IV fluids normal saline at 50 mL an hour; Zofran 8 mg IV every eight hours as needed; Ativan 0.5 mg IV every four hours as needed; Lovenox 40 mg daily; Protonix 40 mg IV daily; and Dilaudid 2 mg IV every two to three hours p.r.n. ALLERGIES: NO KNOWN DRUG ALLERGIES. REVIEW OF SYSTEMS: Per HPI. PHYSICAL EXAMINATION: GENERAL: The patient is a pleasant 60-year-old white female. General appearance, well- nourished, morbidly obese. LEVEL OF DISTRESS: No acute distress. AMBULATION: The patient is ambulating normally, but minimal. HEAD: Pupils are equal, round, and reactive to light. History And Physical [address] [address] NAME: BEN CHING : 59 STATUS : ADM Cameron PAT#: [id number] AGE: 60 ADM/REG DATE : 07/08/16 MR#: [id number] REPORT SERV DATE: 07/09/16 DICTATED BY: NABIL BUNCH DATE: 07/09/16 REPORT STATUS : Draft TRANSCRIBED BY: SUHAS DATE: 07/09/16 EAR, NOSE, AND THROAT: ENT is within normal limits. NECK: Supple. No JVD. Trachea midline. No masses. CARDIOVASCULAR: Heart auscultation, regular rate and rhythm. LUNGS: Respiratory effort. No dyspnea. Auscultation: No wheezes, rales, crackles, or rhonchi. Breath sounds are normal and clear to auscultation. ABDOMEN: Inspection and palpitation. No tenderness, guarding, masses, or rebound tenderness. Soft and nondistended. Bowel sounds are normal. PSYCHIATRIC: Insight, good judgment. MENTAL STATUS: Normal mood. Flat affect, but active and alert. She is oriented to time, place, and person. VITAL SIGNS: Stable. Blood pressure 146/70, heart rate 79, pulse oximetry 96% on room air, temperature 98.1 degrees Fahrenheit. LABORATORY DATA: Admission labs show CBC with a white blood count of 12.2, RBC 3.55, hemoglobin is 10.2, and hematocrit 31.3. No left shift noted. Urinalysis shows specific gravity of 1.029 with a small amount of leukocytes and positive nitrites. BMP shows sodium of 136, potassium 3.5, BUN 22, creatinine 0.68. ASSESSMENT AND PLAN: This 60-year-old white female is being admitted for uncontrolled pain. We will switch pain medications from oral to IV for improved control as well as continue TPN at current rate of 75 mL/h. Additionally, we will add normal saline maintenance fluids at 50 mL an hour. The patient seems to be responding to the increase in IV medications and is resting comfortably with no acute distress. We will put a consult in for Dr. Ander Trinidad. We will proceed with stent removal in a day or two. As the patient continues to have dry heaves and additionally with the pain currently, the patient is not able to be discharged home without removal of the stent. We feel at this time maximum therapy will have been reached within the next 24-48 hours and we will go ahead and plan for stent removal at the end of the week with Dr. Trinidad. The patient and family have been informed of the current treatment plan and are agreeable. RULA/SUHAS Nabil Grant M.D. / [id number] CC: Tyson Benitez STEPHEN S
[2016-07-08 16:02] LABS: BASOPHILS 0.2 %; BASOPHILS ABSOLUTE 0.02 10/3/uL (0.0-0.16); EOSINOPHILS 1.6 %; EOSINOPHILS ABSOLUTE 0.19 10/3/uL (0.0-0.53); HEMATOCRIT 31.3 % (36.0-48.0); HEMOGLOBIN 10.2 g/dL (12.0-16.0); IMMATURE GRANULOCYTES 0.7 %; IMMATURE GRANULOCYTES ABSOLUTE 0.09 10/3/uL (0.0-0.11); LYMPHOCYTES ABSOLUTE 1.71 10/3/uL (0.67-4.30); MANUAL DIFF NO %; MEAN CORPUS HGB CONC 32.6 g/dL (32.0-36.0); MEAN CORPUSCULAR HEMOGLOB 28.7 pg (26.0-34.0); MEAN CORPUSCULAR VOLUME 88.2 fL (80-100); MEAN PLATELET VOLUME 10.7 fL (9.2-13.0); MONOCYTES 4.8 %; MONOCYTES ABSOLUTE 0.58 10/3/uL (0.21-1.20); NEUTROPHILS 78.7 %; NEUTROPHILS ABSOLUTE 9.61 10/3/uL (2.02-8.40); PLATELET COUNT 265 10/3/uL (150-400); RBC DISTRIBUTION WIDTH 14.9 % (12.0-16.0); RED CELL COUNT 3.55 10/6/uL (4.0-5.6); WHITE BLOOD CELLS 12.2 10/3/uL (4.5-10.5)
[2016-07-08 16:23] LABS: A/G RATIO 0.7 (0.7-1.9); ALBUMIN 2.8 G/DL (3.5-5.0); ALKALINE PHOSPHATASE 161 U/L (45-117); BUN (BLOOD UREA NITROGEN) 22 MG/DL (6-23); CALCIUM, SERUM 9.2 MG/DL (8.5-10.4); CHLORIDE, SERUM 106 MMOL/L (96-112); CO2 (CARBON DIOXIDE) 23 MMOL/L (24-34); CREATININE 0.68 MG/DL (0.55-1.02); GFR AFRICAN AMERICAN 112 ML/MIN (>=60); GFR NON AFRICAN AMERICAN 96 ML/MIN (>=60); GLOBULIN 4.2 G/DL (2.5-4.1); GLUCOSE, SERUM 126 MG/DL (60-99); POTASSIUM, SERUM 3.5 MMOL/L (3.5-5.3); SGOT(AST) 43 U/L (5-40); SGPT(ALT) 98 U/L (5-65); SODIUM, SERUM 136 MMOL/L (135-148); TOTAL BILIRUBIN 0.5 MG/DL (0-1.2)
[2016-07-08 18:56] LABS: ASCORBIC ACID (UR NOT ORDER) 40 (NEG); BILIRUBIN, URINE NEGATIVE (NEG); ER URINALYSIS TAT 0 Hrs 11 Mins; KETONE, URINE NEGATIVE (NEG); LEUKOCYTE ESTERASE(NOT OR SMALL (NEG); NITRITE (URINE) POS (NEG); WBC (NOT ORDERED) (RFLEX) 12 (0-5)
[~2016-07-08 20:35] MED LIST changes: +ATV.5 PO; +HYCET 7.5 MG-3473 ML PO; +HYDROMORPHONE 1 MG/ML PO; +LEVOTHYROXIN125 MCG PO; +PROTONIXIV IV; +SYN125 PO
[2016-07-09 09:31] LABS: PHOSPHORUS, SERUM 3.3 MG/DL (2.5-4.5)
[2016-07-09 12:36] LABS: CALCIUM, SERUM 8.3 MG/DL (8.5-10.4); CHLORIDE, SERUM 107 MMOL/L (96-112); CO2 (CARBON DIOXIDE) 21 MMOL/L (24-34); CREATININE 0.73 MG/DL (0.55-1.02); GFR AFRICAN AMERICAN 105 ML/MIN (>=60); GFR NON AFRICAN AMERICAN 91 ML/MIN (>=60); GLUCOSE, SERUM 123 MG/DL (60-99); POTASSIUM, SERUM 3.9 MMOL/L (3.5-5.3); SODIUM, SERUM 140 MMOL/L (135-148)
[2016-07-09 12:37] LABS: BUN (BLOOD UREA NITROGEN) 27 MG/DL (6-23)
[2016-07-10 05:52] LABS: A/G RATIO 0.7 (0.7-1.9); ALBUMIN 2.6 G/DL (3.5-5.0); CALCIUM, SERUM 8.6 MG/DL (8.5-10.4); CHLORIDE, SERUM 105 MMOL/L (96-112); CO2 (CARBON DIOXIDE) 22 MMOL/L (24-34); CREATININE 0.73 MG/DL (0.55-1.02); GFR AFRICAN AMERICAN 105 ML/MIN (>=60); GFR NON AFRICAN AMERICAN 91 ML/MIN (>=60); GLUCOSE, SERUM 112 MG/DL (60-99); PHOSPHORUS, SERUM 3.4 MG/DL (2.5-4.5); POTASSIUM, SERUM 4.2 MMOL/L (3.5-5.3); SGOT(AST) 22 U/L (5-40); SGPT(ALT) 74 U/L (5-65); SODIUM, SERUM 137 MMOL/L (135-148); TOTAL BILIRUBIN 0.5 MG/DL (0-1.2); TOTAL PROTEIN 6.6 G/DL (6.0-8.5)
[2016-07-10 05:55] LABS: ALKALINE PHOSPHATASE 182 U/L (45-117); BUN (BLOOD UREA NITROGEN) 21 MG/DL (6-23)
[2016-07-11 05:48] LABS: A/G RATIO 0.7 (0.7-1.9); ALBUMIN 2.4 G/DL (3.5-5.0); CALCIUM, SERUM 8.5 MG/DL (8.5-10.4); CHLORIDE, SERUM 106 MMOL/L (96-112); CO2 (CARBON DIOXIDE) 23 MMOL/L (24-34); CREATININE 0.67 MG/DL (0.55-1.02); GFR AFRICAN AMERICAN 112 ML/MIN (>=60); GFR NON AFRICAN AMERICAN 97 ML/MIN (>=60); GLOBULIN 3.6 G/DL (2.5-4.1); GLUCOSE, SERUM 114 MG/DL (60-99); POTASSIUM, SERUM 3.4 MMOL/L (3.5-5.3); SGOT(AST) 41 U/L (5-40); SGPT(ALT) 85 U/L (5-65); SODIUM, SERUM 139 MMOL/L (135-148); TOTAL BILIRUBIN 0.5 MG/DL (0-1.2)
[2016-07-11 05:51] LABS: ALKALINE PHOSPHATASE 198 U/L (45-117); BUN (BLOOD UREA NITROGEN) 17 MG/DL (6-23)
== END 2016-07-11 17:39 | disposition home or self-care (01) | DRG 949 ==
LOC: ER 20:35 → 2SO 20:56
PROVIDERS: Emergency Medicine; Internal Medicine Gastroenterology; Surgery
PROC: 0DP58DZ Removal of Intraluminal Device from Esophagus, Via Natural or Artificial Opening Endoscopic (ICD-10-PCS; principal; 2016-07-10 16:00)
DX: T85.848A Pain due to other internal prosthetic devices, implants and grafts, initial encounter (principal); N39.0 Urinary tract infection, site not specified; K22.10 Ulcer of esophagus without bleeding; Z99.81 Dependence on supplemental oxygen; K91.0 Vomiting following gastrointestinal surgery; G89.18 Other acute postprocedural pain; M79.7 Fibromyalgia; I10 Essential (primary) hypertension; G47.33 Obstructive sleep apnea (adult) (pediatric); K21.9 Gastro-esophageal reflux disease without esophagitis; E03.9 Hypothyroidism, unspecified; E86.0 Dehydration; E66.01 Morbid (severe) obesity due to excess calories; Z68.36 Body mass index [BMI] 36.0-36.9, adult; Z98.84 Bariatric surgery status; Z85.3 Personal history of malignant neoplasm of breast; Z90.13 Acquired absence of bilateral breasts and nipples
CPT/HCPCS: 74020; 74240; 80048; 80053; 81001; 82962; 83690; 83735; 84100; 84134; 85025; 87040; 87077; 87086; 87186; 96374; 96375; 99285; A9270-GY; C9113; J1170; J2405